=== PATIENT | female | born 1965 | race Two or more races ===

== ENCOUNTER 2017-07-15 10:40 | Outpatient (CLI) | payer OTHER ==
[~2017-07-15 10:40] MED LIST: AMOX1TAB12 PO; CATAFLAM50 MG PO; CONEX TABLET1 EACH PO; FLONASE16 GM NS; GILTUSS LIQUID237 M1 PO; MEDROL4 MG PO; ORPH100T PO; PRILOSEC40 MG PO; PROVENTIL3 ML/2.5 M IH; TESSALON PERLE100 MG PO; ZANTAC300 MG PO; ZYRTEC10 MG PO
== END 2017-07-15 17:00 | disposition home or self-care (01) ==
LOC: RAD 10:40
DX: R07.89 Other chest pain (principal); M94.0 Chondrocostal junction syndrome [Tietze]

== ENCOUNTER 2017-11-19 07:35 | Outpatient (CLI) | payer OTHER | END 2017-11-19 07:41 | disposition home or self-care (01) | LOC: LAB 07:35 | DX: I10 Essential (primary) hypertension (principal); E03.5 Myxedema coma; Z00.00 Encounter for general adult medical examination without abnormal findings; E11.29 Type 2 diabetes mellitus with other diabetic kidney complication ==

== ENCOUNTER 2018-07-06 13:28 | Outpatient (CLI) | payer OTHER | END 2018-07-06 13:30 | disposition home or self-care (01) | LOC: MAMO-SONO 13:28 | DX: N64.4 Mastodynia (principal); Z12.31 Encounter for screening mammogram for malignant neoplasm of breast ==

== ENCOUNTER → 2018-07-07 06:51 | Outpatient (CLI) | payer OTHER | END | disposition home or self-care (01) | LOC: LAB 06:51 | DX: R53.1 Weakness (principal); N92.5 Other specified irregular menstruation ==

== ENCOUNTER 2018-07-23 13:44 | Outpatient (CLI) | payer OTHER | END 2018-07-23 13:57 | disposition home or self-care (01) | LOC: NUCLEAR 13:44 | DX: M81.0 Age-related osteoporosis without current pathological fracture (principal) ==

== ENCOUNTER 2018-10-19 20:24 | Inpatient (IN) | payer OTHER ==
[~2018-10-19] VITALS: Ht 162.6 cm; Wt 173.0 kg
--- NOTE | 2018-10-19 20:56 | NUR ---
SE RECIBE PTE LA CUAL REFIERE PRESENTAR DOLOR ABDOMINAL ELLIE Y VARIOS EPISODIOS DE VOMITOS Y DIARREA DESDE EL COLLEEN DE QAMAR. PTE PRESENTA VOMITOS MOMENTOS ANTES DE TRIAGE.
--- NOTE | 2018-10-19 22:21 | NUR ---
SE ORIENTA PTE SOBRE TX MEDICO EL CUAL REFIERE ENTENDER.SE LE EXTRAEN MUESTRAS,SE CANALIZA Y SE ADMINISTRA MEDICAMENTO SHERRON ORDEN MEDICA.
--- NOTE | 2018-10-20 07:29 | NUR ---
PACIENTE ALERTA Y ORIENTADA EN [place] ERICA ESFERAS, PRESENTA BUEN PATRON RESPIRATORIO Y OSMAR DE DOLOR. CANALIZADA EN BRAZO LT PATENTE Y OSMAR DE S/S DE FLEBITIS E INFILTRACION, RECIBIENDO 0.9% NSS A 150 ML/HR. PENDIENTE EVALUACION DE MEDICINA INTERNA CON DR SNOWDEN POR PANCREATITIS.
[2018-10-24] MEDS ORDERED: ULTRACET PO (13:02)
== END 2018-10-24 08:00 | disposition home or self-care (01) | DRG 417 ==
LOC: ER 20:24 → MEDI 10-20 09:12 → SEC-K 10-20 09:12 → MEDI 10-20 11:54 → SURH 10-23 14:15
PROVIDERS: Surgery; ADMIT Internal Medicine
PROC: BF37ZZZ Magnetic Resonance Imaging (MRI) of Pancreas (ICD-10-PCS; 2018-10-20)
PROC: BW40ZZZ Ultrasonography of Abdomen (ICD-10-PCS; 2018-10-20)
PROC: 0WQF4ZZ Repair Abdominal Wall, Percutaneous Endoscopic Approach (ICD-10-PCS; 2018-10-23)
PROC: 0FT44ZZ Resection of Gallbladder, Percutaneous Endoscopic Approach (ICD-10-PCS; principal; 2018-10-23 18:00)
DX: K80.10 Calculus of gallbladder with chronic cholecystitis without obstruction (principal); K85.10 Biliary acute pancreatitis without necrosis or infection; E86.0 Dehydration; K42.9 Umbilical hernia without obstruction or gangrene

== ENCOUNTER → 2019-04-01 07:02 | Outpatient (CLI) | payer OTHER ==
[~2019-04-01 07:02] MED LIST changes: +ULTRACET PO
== END | disposition home or self-care (01) ==
LOC: LAB 07:02
DX: R42 Dizziness and giddiness (principal); Z00.00 Encounter for general adult medical examination without abnormal findings; E78.49 Other hyperlipidemia; E55.9 Vitamin D deficiency, unspecified

== ENCOUNTER 2019-05-04 09:21 | Outpatient (CLI) | payer OTHER | END 2019-05-04 15:00 | disposition home or self-care (01) | LOC: LAB 09:21 | DX: J11.1 Influenza due to unidentified influenza virus with other respiratory manifestations (principal); J20.0 Acute bronchitis due to Mycoplasma pneumoniae ==

== ENCOUNTER 2019-05-10 13:12 | Outpatient (CLI) | payer OTHER | END 2019-05-10 13:13 | disposition home or self-care (01) | LOC: RAD 13:12 | DX: J20.0 Acute bronchitis due to Mycoplasma pneumoniae (principal) ==

== ENCOUNTER 2019-09-02 09:17 | Outpatient (CLI) | payer OTHER | END 2019-09-02 09:21 | disposition home or self-care (01) | LOC: LAB 09:17 | DX: N39.0 Urinary tract infection, site not specified (principal); J11.1 Influenza due to unidentified influenza virus with other respiratory manifestations; J06.9 Acute upper respiratory infection, unspecified ==

== ENCOUNTER 2019-09-02 10:51 | Outpatient (CLI) | payer OTHER | END 2019-09-02 12:21 | disposition home or self-care (01) | LOC: MAMO-SONO 10:51 | DX: N60.11 Diffuse cystic mastopathy of right breast (principal); N60.12 Diffuse cystic mastopathy of left breast; Z12.31 Encounter for screening mammogram for malignant neoplasm of breast ==

== ENCOUNTER 2019-10-05 16:21 | Outpatient (CLI) | payer OTHER | END 2019-10-05 16:26 | disposition home or self-care (01) | LOC: LAB 16:21 | DX: J11.1 Influenza due to unidentified influenza virus with other respiratory manifestations (principal); R05 Cough ==

== ENCOUNTER 2020-04-13 06:12 | Outpatient (CLI) | payer OTHER | END 2020-04-13 06:23 | disposition home or self-care (01) | LOC: LAB 06:12 | PROVIDERS: ATTEND Internal Medicine | DX: M54.5 Low back pain (principal); I10 Essential (primary) hypertension; Z01.810 Encounter for preprocedural cardiovascular examination; E03.8 Other specified hypothyroidism; E78.89 Other lipoprotein metabolism disorders; E11.51 Type 2 diabetes mellitus with diabetic peripheral angiopathy without gangrene; E55.9 Vitamin D deficiency, unspecified; E66.8 Other obesity; E11.9 Type 2 diabetes mellitus without complications; Z12.11 Encounter for screening for malignant neoplasm of colon ==

== ENCOUNTER 2020-05-18 12:34 | Emergency (ER) | payer OTHER ==
[~2020-05-18] VITALS: Ht 162.6 cm; Wt 88.5 kg
[2020-05-18] MEDS ORDERED: LEVOTHYROXINE25 MCG PO (12:38)
[2020-05-18] MEDS ORDERED: CEROVITE JR1 EACH (12:39)
[2020-05-18] MEDS ORDERED: VITAMIN D210 MCG PO (12:39)
[2020-05-18] MEDS ORDERED: MEDROLPACK PO (16:09)
[2020-05-18] MEDS ORDERED: COMBIVENT RESPIM4 GM IH (16:09)
[2020-05-18] MEDS ORDERED: NEBUSAL4 M1 IH (16:09)
[2020-05-18] MEDS ORDERED: TESSALON PERLE100 M1 PO (16:09)
== END 2020-05-18 16:36 | disposition home or self-care (01) ==
LOC: ER 12:34
DX: J98.01 Acute bronchospasm (principal); R06.02 Shortness of breath; Z03.818 Encounter for observation for suspected exposure to other biological agents ruled out

== ENCOUNTER 2020-08-19 08:00 | Outpatient (CLI) | payer OTHER ==
[~2020-08-19 08:00] MED LIST changes: +CEROVITE JR1 EACH; +COMBIVENT RESPIM4 GM IH; +LEVOTHYROXINE25 MCG PO; +MEDROLPACK PO; +NEBUSAL4 M1 IH; +TESSALON PERLE100 M1 PO; +VITAMIN D210 MCG PO
== END 2020-08-19 08:06 | disposition home or self-care (01) ==
LOC: LAB 08:00
PROVIDERS: ATTEND Internal Medicine
DX: E03.8 Other specified hypothyroidism (principal); I10 Essential (primary) hypertension; E78.89 Other lipoprotein metabolism disorders; E66.8 Other obesity; E11.9 Type 2 diabetes mellitus without complications

== ENCOUNTER 2020-08-23 07:15 | Outpatient (CLI) | payer OTHER | END 2020-08-23 07:20 | disposition home or self-care (01) | LOC: LAB 07:15 | PROVIDERS: ATTEND Internal Medicine | DX: N39.0 Urinary tract infection, site not specified (principal) ==

== ENCOUNTER → 2020-08-25 | Outpatient (CLI) | payer OTHER | END | disposition home or self-care (01) | LOC: RAD 10:55 | PROVIDERS: ATTEND Internal Medicine | DX: N20.0 Calculus of kidney (principal); I10 Essential (primary) hypertension; E03.8 Other specified hypothyroidism; E78.89 Other lipoprotein metabolism disorders; E11.51 Type 2 diabetes mellitus with diabetic peripheral angiopathy without gangrene; E66.8 Other obesity ==

== ENCOUNTER 2020-08-29 15:11 | Emergency (ER) | payer OTHER ==
[~2020-08-29] VITALS: Ht 162.6 cm; Wt 77.1 kg
== END 2020-08-29 16:16 | disposition home or self-care (01) ==
LOC: ER 15:11
DX: T54.91XA Toxic effect of unspecified corrosive substance, accidental (unintentional), initial encounter (principal); R06.02 Shortness of breath; F06.4 Anxiety disorder due to known physiological condition; Y92.69 Other specified industrial and construction area as the place of occurrence of the external cause

== ENCOUNTER 2020-11-10 07:06 | Outpatient (CLI) | payer OTHER | END 2020-11-10 07:11 | disposition home or self-care (01) | LOC: LAB 07:06 | PROVIDERS: ATTEND Internal Medicine | DX: I10 Essential (primary) hypertension (principal); E03.8 Other specified hypothyroidism; E78.89 Other lipoprotein metabolism disorders; E11.51 Type 2 diabetes mellitus with diabetic peripheral angiopathy without gangrene; E66.8 Other obesity; E11.9 Type 2 diabetes mellitus without complications; N20.0 Calculus of kidney; Z12.11 Encounter for screening for malignant neoplasm of colon ==

== ENCOUNTER 2021-03-05 13:02 | Outpatient (CLI) | payer OTHER | END 2021-03-05 13:41 | disposition home or self-care (01) | LOC: LAB 13:02 | DX: Z00.00 Encounter for general adult medical examination without abnormal findings (principal) ==

== ENCOUNTER 2021-03-06 08:01 | Outpatient (CLI) | payer OTHER | END 2021-03-06 08:06 | disposition home or self-care (01) | LOC: RAD 08:01 | DX: M25.562 Pain in left knee (principal); M25.561 Pain in right knee; M54.5 Low back pain ==

== ENCOUNTER → 2021-03-07 06:41 | Outpatient (CLI) | payer OTHER | END | disposition home or self-care (01) | LOC: LAB 06:41 | PROVIDERS: ATTEND Emergency Medicine Pediatric Emergency Medicine | DX: Z03.818 Encounter for observation for suspected exposure to other biological agents ruled out (principal) ==

== ENCOUNTER 2021-03-12 14:32 | Outpatient (CLI) | payer OTHER | END 2021-03-12 15:00 | disposition home or self-care (01) | LOC: LAB 14:32 | PROVIDERS: ATTEND Emergency Medicine Pediatric Emergency Medicine | DX: Z20.828 Contact with and (suspected) exposure to other viral communicable diseases (principal) ==

== ENCOUNTER 2021-03-14 12:44 | Outpatient (CLI) | payer OTHER | END 2021-03-14 12:46 | disposition home or self-care (01) | LOC: NUCLEAR 12:44 | PROVIDERS: ATTEND Internal Medicine Rheumatology | DX: M81.0 Age-related osteoporosis without current pathological fracture (principal) ==

== ENCOUNTER 2021-03-28 09:30 | Outpatient (CLI) | payer OTHER | END 2021-03-28 09:39 | disposition home or self-care (01) | LOC: MAMO-SONO 09:30 | DX: N64.59 Other signs and symptoms in breast (principal); Z12.31 Encounter for screening mammogram for malignant neoplasm of breast ==

== ENCOUNTER 2021-03-29 06:47 | Outpatient (CLI) | payer OTHER | END 2021-03-29 06:49 | disposition home or self-care (01) | LOC: LAB 06:47 | PROVIDERS: ATTEND Internal Medicine | DX: E11.9 Type 2 diabetes mellitus without complications (principal); I11.9 Hypertensive heart disease without heart failure; E78.2 Mixed hyperlipidemia; N39.0 Urinary tract infection, site not specified; E55.9 Vitamin D deficiency, unspecified ==

== ENCOUNTER 2023-03-10 08:52 | Outpatient (CLI) | payer OTHER | END 2023-03-10 08:58 | disposition home or self-care (01) | LOC: SONOGRAMA 08:52 | PROVIDERS: ATTEND Pathology Anatomic Pathology & Clinical Pathology | DX: D34 Benign neoplasm of thyroid gland (principal); E04.1 Nontoxic single thyroid nodule; E07.9 Disorder of thyroid, unspecified ==